=== PATIENT | male | born 1980 | race Caucasian/White ===

== ENCOUNTER 2017-10-24 10:07 | Emergency (ER) | payer OTHER ==
--- OUTSIDE RECORDS SUMMARY | 2017-10-24 10:09 | XMS REPORT | Clinical Summary ---
:1980 Author Organization [facility] Address [address] [place] [address] Care Team Providers Name Role Phone Asked, No Pcp Primary Care Provider Unavailable Allergies Active Allergy Reactions Severity Noted Date Comments Ibuprofen Other (See Comments) 12/09/2015 Can't breathe Asp-Diozrnnoupmpm-Wdas-Calcium 01/04/2016 Current Medications Prescription Sig. Disp. Refills Start Date End Date Status BOOSTRIX TDAP TO BE 0 12/05/2015 Active 2.5-8-5 ADMINISTERED BY Lf-mcg-Lf/0.5mL THE PHARMACIST suspension doxepin (SINEquan) Take 3 capsules 12/15/2015 Active 10 MG capsule by mouth nightly. ADVAIR DISKUS Inhale 1 puff 2 12/29/2015 Active 500-50 mcg/dose (two) times a DISKUS day. COMBIVENT RESPIMAT Inhale 1 puff 4 g 3 01/09/2017 Active 20-100 every 6 (six) mcg/actuation mist hours as needed inhaler (Wheezing). pantoprazole Take 40 mg by 03/28/2017 Active (PROTONIX) 40 MG mouth daily. EC tablet hydrOXYzine Take 25 mg by 03/12/2017 Active (ATARAX) 25 MG mouth every 4 tablet (four) hours as needed. fluticasone-salmet Inhale 232 mcg 2 1 each 3 08/16/2017 Active lon 232-14 (two) times a mcg/actuation day. aerosol powdr breath activated XOLAIR 150 mg INJECT 375MG 6 vial 0 10/15/2017 Active injection SUB-Q EVERY 2 WEEKS. COMBIVENT RESPIMAT Inhale 1 puff 11/22/2015 Discontinued 20-100 every 6 (six) 7 mcg/actuation mist hours as needed. inhaler predniSONE Take 4 tabs for 5 40 tablet 0 01/09/2017 (DELTASONE) 10 mg days, 3 tabs for 7 tablet 5 days, 2 tabs for 5 days, 1 tabs for 5days traMADol (ULTRAM) TK 1 T PO HS 0 03/27/2017 Discontinued 50 mg tablet 8 XOLAIR 150 mg 02/26/2017 Discontinued injection 8 ondansetron 03/28/2017 Discontinued (ZOFRAN) 4 MG 8 tablet XOLAIR 150 mg INJECT 375MG 6 vial 1 07/07/2017 Discontinued injection SUB-Q EVERY 2 8 WEEKS. Hospital, Clinic, or Ordered Dose Route Frequency Start Date End Date Status Other Facility Administered Medication omalizumab (XOLAIR) 375 mg subQ every 14 days 03/13/2017 Active injection 375 mgIndications: Chronic obstructive asthma with acute exacerbation methylPREDNISolone 80 mg IM once 01/09/2017 01/09/2017 Ended acetate (DEPO-MEDROL) injection 80 mgIndications: Asthma attack methylPREDNISolone 80 mg IM once 04/23/2017 04/23/2017 Ended acetate (DEPO-MEDROL) injection 80 mgIndications: Rash Active Problems Problem Noted Date Allergic rhinitis 12/09/2015 Asthma 12/09/2015 Encounters Date Type Specialty Care Team Description 10/15/2017 Refill Pulmonology Irina Donohue MD 10/10/2017 Clinical Support Pulmonology Felicia Hathaway MA Severe asthma with acute exacerbation, unspecified whether persistent (Primary Dx) 09/12/2017 Clinical Support Pulmonology Andra Lugo, Intermittent asthma MA without complication, unspecified asthma severity 08/17/2017 Telephone Pulmonology Marce Mason MA 08/16/2017 Clinical Support Pulmonology Marce Mason, Severe asthma with acute MA exacerbation, unspecified whether persistent 08/15/2017 Telephone Pulmonology Andra Lugo MA 07/26/2017 Telephone Pulmonology Marce Mason MA 07/09/2017 Clinical Support Pulmonology Andra Lugo, Severe asthma with acute MA exacerbation, unspecified whether persistent 07/09/2017 Documentation Pulmonology Marce Mason MA 07/05/2017 Refill Pulmonology Irina Donohue MD 06/25/2017 Clinical Support Pulmonology Andra Lugo, Severe asthma with acute MA exacerbation, unspecified whether persistent 06/25/2017 Telephone Pulmonology Irina Donohue MD 06/21/2017 Telephone PulmonIrina Vasquez MD 06/13/2017 Telephone Pulmonology Andra Lugo, WONG 05/30/2017 Clinical Support Pulmonology Irina Donohue MD Severe asthma with acute Marce Mason, exacerbation, unspecified MA whether persistent 05/16/2017 Clinical Support Pulmonology Andra Lugo, Severe asthma with acute MA exacerbation, unspecified whether persistent 05/14/2017 Telephone Pulmonology Marce Mason, WONG 05/07/2017 Telephone Pulmonology Felicia Hathaway MA 04/23/2017 Office Visit Pulmonology Irina Donohue MD Rash (Primary Dx); Snoring; TORSTEN (obstructive sleep apnea); Severe asthma with acute exacerbation, unspecified whether persistent 03/13/2017 Office Visit Pulmonology Irina Donohue MD Chronic obstructive asthma with acute exacerbation (Primary Dx); Severe asthma with acute exacerbation, unspecified whether persistent 03/08/2017 Telephone Pulmonology Andra Lugo, WONG 02/22/2017 Telephone Pulmonology Andra Lugo, WONG 01/23/2017 Office Visit Pulmonology Irina Donohue MD Seasonal allergic rhinitis due to pollen (Primary Dx); Severe persistent asthma with acute exacerbation 01/19/2017 Telephone Pulmonology Marce Mason, WONG 01/09/2017 Office Visit Pulmonology Irina Donohue MD Asthma attack ( Primary Dx); Seasonal allergic rhinitis due to pollen after 10/23/2016 Family History Medical History Relation Name Comments Heart attack Father Allergies Other Asthma Other Relation Name Status Comments Father Mother Other Social History Tobacco Use Types Packs/Day Years Used Date Never Smoker Smokeless Tobacco: Never Used Alcohol Use Drinks/Week oz/Week Comments Yes 1/2 a week Sex Assigned at Date Recorded Not on file Last Filed Vital Signs Vital Sign Reading Time Taken Blood Pressure 139/83 10/10/2017 4:24 PM CDT Pulse 72 10/10/2017 4:24 PM CDT Temperature 36.5 C (97.7 F) 10/10/2017 4:24 PM CDT Respiratory Rate - - Oxygen Saturation 98% 10/10/2017 4:24 PM CDT Inhaled Oxygen Concentration - - Weight 81.2 kg (179 lb) 10/10/2017 4:24 PM CDT Height 172.7 cm (5' 8") 04/23/2017 3:35 PM [employer] Body Mass Index 27.22 10/10/2017 4:24 PM CDT Plan of Treatment Health Maintenance Due Date Last Done Comments INFLUENZA VACCINE 01/02/2018 Results [place] grouping (01/19/2017 1:37 PM) Component Value Ref Range Rough marshelder 20.80 (H) kU/L Rough lara elder class 4 Sheep [place] IgE 5.94 (H) kU/L Sheep sorrel class 3 Nettle 11.20 (H) kU/L Nettle class 3 Specimen Performing Laboratory [facility] Narrative FASTING:NO Pullman grouping (01/19/2017 1:37 PM) Component Value Ref Range Common ragweed 4.35 (H) kU/L Common ragweed class 3 Rough pigweed 11.70 (H) kU/L Pigweed class 3 Specimen Performing Laboratory [facility] Narrative FASTING:NO Grass grouping (01/19/2017 1:37 PM) Component Value Ref Range Bermuda grass 12.80 (H) kU/L Bermuda grass class 3 Valentino grass 18.90 (H) kU/L Valentino grass class 4 Specimen Performing Laboratory [facility] Narrative FASTING:NO Tree grouping (01/19/2017 1:37 PM) Component Value Ref Range Pecan/[place] tree IgE 23.90 (H) kU/L Pecan/hickory tree class 4 [place] Tree 0.32 (H) kU/L [place] tree class 0/1 Specimen Performing Laboratory [facility] Narrative FASTING:NO Tree grouping (01/19/2017 1:37 PM) Component Value Ref Range Live/Jenny oak 1.97 (H) kU/L Live oak class 2 Elm IgE 5.90 (H) kU/L Elm class 3 Specimen Performing Laboratory [facility] Narrative FASTING:NO Tree grouping (01/19/2017 1:37 PM) Component Value Ref Range Amite IgE 3.04 (H) kU/L Maple/box elder class 2 Allergen silver birch 0.66 (H) kU/L Silver birch class 1 Mountain cedar tree 13.90 (H) kU/L Mountain cedar tree class 3 Mcgill tree 6.31 (H) kU/L Mcgill tree class 3 White shawn tree 8.82 (H) kU/L White shawn tree class 3 Specimen Performing [facility] Narrative FASTING:NO Cockroach (i6) IgE (01/19/2017 1:37 PM) Component Value Ref Range Cockroach 64.70 (H) kU/L Cockroach class 5 Specimen Performing [facility] Narrative FASTING:NO Dander Grouping (01/19/2017 1:37 PM) Component Value Ref Range Cat epithellium 99.20 (H) kU/L Cat epithellium class 5 Dog epithellium >100 (H) kU/L Dog epithelium class 6 Specimen Performing Laboratory [facility] Narrative FASTING:NO Mite and Mold Grouping (01/19/2017 1:37 PM) Component Value Ref Range D. pteronyssinus 96.30 (H) kU/L D. pteronyssinus class 5 D. farinae 92.70 (H) kU/L D. farinae class 5 Penicillium notatum 11.40 (H) kU/L Penicillium notatum class 3 Cladosporium herbarum 66.60 (H) kU/L Cladosporium herbarum class 5 Aspergillus fumigatus 26.80 (H) kU/L Aspergillus fumigatus class 4 Alternaria alternata 46.40 (H) kU/L Alternaria alternata class 4 Specimen Performing Laboratory [facility] Narrative FASTING:NO ALLERGEN MOUSE URINE PROTEINS (E72) IGE (01/19/2017 1:37 PM) Component Value Ref Range Mouse Urine Proteins 51.60 (H) kU/L Class 5 Specimen Performing Laboratory [facility] Narrative FASTING:NO [facility] Interpretation (01/19/2017 1:37 PM) Component Value Ref Range Interpretation Comment: SpecificLevel of Allergen IGE ClasskU/L Specific IGE Antibody ----- 0<0.10 Absent/ Undetectable 0/10.10-0.34 Very Low Level 10.35-0.69 Low Level 20.70-3.49 Moderate Level 33.50-17.4 High Level 417.5-49.9 Very High Level 550-100Very High Level 6>100Very High Level The clinical relevance of allergen results of 0.10-0.34 kU/L are undetermined and intended for specialist use. Allergens denoted with a "" include results using one or more analyte specific reagents. In those cases, the test was developed and its analytical performance characteristics have been determined by [employer]. It has not been cleared or approved by the U.S. Food and Drug Administration. This assay has been validated pursuant to the CLIA regulations and is used for clinical purposes. Specimen Performing Laboratory [facility] Narrative FASTING:NO Immunoglobulin E (01/19/2017 1:37 PM) Component Value Ref Range IgE 8,368 (H) <DW=618 kU/L Comment: Results verified by repeat analysis on dilution. Specimen Performing Laboratory Blood [facility] Narrative FASTING:NO after 10/23/2016 Insurance Payer Benefit Plan / Group Subscriber ID Type Phone Address AETNA AETNA HMO,POS,EPO, MC/EC xxxxxxxxxx HMO Home: [address] [facility] [phone] [place] [id number]
[2017-10-24] MEDS ORDERED: PANTOPRAZOLE 40 MG INJ ONE (10:38)
[2017-10-24] MEDS ORDERED: ONDANSETRON 4 MG/2 ML VIAL ONE (10:38)
[2017-10-24] MEDS ORDERED: NA CHLORIDE 0.9% 1,000 ML ONE (10:44)
[2017-10-24 10:53] LABS: Absolute Lymphocytes (CBC) 1.8 K/uL (0.7-4.9); Absolute Monocytes 0.5 K/uL (0.1-1.3); Absolute Neutrophil 3.9 K/uL (1.8-8.0); Basophils % 0.5 % (0-1.3); Eosinophils % 7.4 % (0-4.4); Hematocrit 44.2 % (39.6-49.0); Lymphocytes % 26.3 % (15.3-44.8); MCH 27.9 pg (27.0-35.0); MCV 81.4 fL (80-100); Monocytes % 7.7 % (3.3-12.3); RBC Red Blood Cell Count 5.43 M/uL (4.33-5.43)
[2017-10-24 11:13] LABS: Potassium 3.4 mEq/L (3.6-5.0)
[2017-10-24 11:20] LABS: Albumin 4.6 g/dL (3.2-5.5); Bilirubin Direct 0.1 mg/dL (0-0.2); Bilirubin Total 0.9 mg/dL (0.3-1.2); Protein, Total 7.9 g/dL (6.0-8.3)
--- NOTE | 2017-10-24 12:56 | RAD REPORT ---
EXAM DESCRIPTION: CT - Abdomen Pelvis W Contrast - 10/24/2017 12:48 pm CLINICAL HISTORY: Abdominal pain, prior cholecystectomy, prior hernia repair COMPARISON: CT March 2017 TECHNIQUE: Biphasic, helical CT imaging of the abdomen and pelvis was performed following 100 ml non -ionic IV contrast. Oral contrast was given. All CT scans are performed using dose optimization technique as appropriate and may include automated exposure control or mA/KV adjustment according to patient size. FINDINGS: No suspicious findings in the lung bases. The liver, spleen, and pancreas show no suspicious findings. Cholecystectomy clips are present with n o biliary tree dilatation. Symmetric renal function is seen with no hydronephrosis or suspicious renal mass. No pyelonephritis o r acute renal parenchymal process. No urinary bladder abnormality. No dilated bowel loops or bowel wall thickening. Appendix is normal. No free air, free fluid or infla mmatory stranding. No mass or bulky lymphadenopathy. A very small fat only umbilical hernia is prese nt. Postsurgical changes are present from inguinal hernia repair. No adrenal abnormality. No suspicious bony findings. IMPRESSION: No abdominal wall thickening, inflammatory stranding or other finding to explain epigast jon or upper abdominal pain symptoms. Patient is status post cholecystectomy. No biliary tree dilatation or pancreatic finding.
[2017-10-24] MEDS ORDERED: MORPHINE 4 MG/ML SYR ONE (13:36)
[2017-10-24 13:46] LABS: Urine Blood NEGATIVE (NEG); Urine Glucose NEGATIVE (NEG); Urine Protein NEGATIVE (NEG); Urine Specific Gravity 1.015 (1.005-1.030)
--- NOTE | 2017-10-24 13:47 | EKG ---
Test Date: 2017-10-24 Test Time: 10:41:53 Braille Duplicating Machine Operator: RONDA MEASUREMENT RESULTS: Intervals: Rate: 73 NH: 150 QRSD: 94 QT: 358 QTc: 394 [place]: P: 74 NH: 150 QRS: 87 T: 66 INTERPRETIVE STATEMENTS: Normal sinus rhythm Normal ECG Compared to ECG 04/24/2016 03:07:41 No significant changes Electronically Signed On 10-24-17 13:46:23 CDT by Manuel Olson
--- NOTE | 2017-10-24 14:09 | ER ---
Nurse's Notes [facility] Name: Christian Holder Jr Age: 37 yrs Sex: Male : 1980 Arrival Date: 10/24/2017 Time: 10:09 Bed 5 Private MD: Ivan Donnelly B Diagnosis: Epigastric pain Presentation: 10/24 10:12 Presenting complaint: Patient states: Epigastric pain for 1.5 weeks. Intolerant of aj food. Transition of care: patient was not received from another setting of care. Onset of symptoms was October 14, 2017. Care prior to arrival: None. 10:12 Method Of Arrival: Ambulatory aj 10:12 Acuity: HENRY 3 aj 10:47 Risk Assessment: Do you want to hurt yourself or someone else? Patient reports no sv desire to harm self or others. Initial Sepsis Screen: Does the patient meet any 2 criteria? No. Patient's initial sepsis screen is negative. Does the patient have a suspected source of infection? No. Patient's initial sepsis screen is negative. Triage Assessment: 10:13 General: Appears in no apparent distress. uncomfortable, Behavior is calm, cooperative, aj appropriate for age. Pain: Complains of pain in epigastric area. Neuro: Level of Consciousness is awake, alert, obeys commands, Oriented to person, place, time, situation, Appropriate for age. Respiratory: Airway is patent Respiratory effort is even, unlabored, Respiratory pattern is regular, symmetrical. GI: Abdomen is flat, non-distended, Reports upper abdominal pain, nausea, vomiting. Derm: Skin is intact, is healthy with good turgor, Skin is pink, warm \T\ dry. normal. Historical: - Allergies: 10:13 Advil; aj 10:13 Aspirin; aj - Home Meds: 10:13 Advair Diskus Inhl [Active]; aj - PMHx: 10:13 Asthma; aj - PSHx: 10:13 Hernia repair; sinus; Cholecystectomy; aj - Immunization history:: Adult Immunizations up to date. - Social history:: Smoking status: Patient/guardian denies using tobacco. - Ebola Screening: : No symptoms or risks identified at this time. Screenin:47 Abuse screen: Denies threats or abuse. Denies injuries from another. Nutritional sv screening: No deficits noted. Tuberculosis screening: No symptoms or risk factors identified. Fall Risk None identified. Assessment: 10:46 General: Appears in no apparent distress. comfortable, Behavior is calm, cooperative, sv appropriate for age. Pain: Complains of pain in epigastric area Pain currently is 8 out of 10 on a pain scale. Quality of pain is described as aching, Pain began 1.5 weeks ago Is intermittent. Neuro: Level of Consciousness is awake, alert, obeys commands, Oriented to person, place, time, situation, Moves all extremities. Full function Gait is steady. Respiratory: Respiratory effort is even, unlabored, Respiratory pattern is regular, symmetrical. GI: Abdomen is flat, non-distended, Abd is soft and non tender X 4 quads. Reports epigastric pain. Derm: Skin is normal. 12:10 Reassessment: Patient appears in no apparent distress at this time. Patient and/or sv family updated on plan of care and expected duration. Pain level reassessed. Patient is alert, oriented x 3, equal unlabored respirations, skin warm/dry/pink. 13:36 Reassessment: Patient and/or family updated on plan of care and expected duration. Pain aa5 level reassessed. Patient is alert, oriented x 3, equal unlabored respirations, skin warm/dry/pink. Vital Signs: 10:13 BP 146 / 95; Pulse 71; Resp 16; Temp 97.4; Pulse Ox 99% on R/A; Weight 79.38 kg; Height aj 5 ft. 8 in. (172.72 cm); Pain 8/10; 11:35 BP 147 / 89; Pulse 75; Resp 17; Pulse Ox 100% on R/A; jb1 12:30 BP 156 / 92; Pulse 88; Resp 18; Pulse Ox 98% on R/A; sv 13:37 BP 156 / 96; Pulse 85; Resp 17; Pulse Ox 99% on R/A; jb1 10:13 Body Mass Index 26.61 (79.38 kg, 172.72 cm) aj ED Course: 10:09 Patient arrived in ED. sb2 10:09 Ivan Donnelly MD is Private Physician. sb2 10:12 Triage completed. aj 10:13 Arm band placed on left wrist. Patient placed in an exam room. aj 10:14 Norris Betts PA is PHCP. cp 10:14 Noel Sánchez MD is Attending Physician. cp 10:22 Keesha Hernandez, RN is Primary Nurse. sv 10:36 Inserted saline lock: 22 gauge in left antecubital area, using aseptic technique. Blood jb1 collected. 10:36 Missed attempt(s): 22 gauge in right antecubital area. jb1 10:36 Initial lab(s) drawn, by me, sent to lab. jb1 10:47 Patient has correct armband on for positive identification. Placed in gown. Bed in low sv position. Call light in reach. Side rails up X2. Door closed. Warm blanket given. Head of bed elevated. 11:42 Creatinine (Radiology Only) Sent. sv 11:53 Urine Microscopic Only Sent. sv 12:37 IV discontinued, intact, bleeding controlled, Pressure dressing applied. jb1 12:38 Inserted saline lock: 22 gauge in right antecubital area, using aseptic technique. jb1 12:50 Abdomen In Process Unspecified. EDMS 14:08 Debbie Colvin MD is Referral Physician. cp 14:28 No provider procedures requiring assistance completed. sv Administered Medications: 10:40 Drug: ProTONIX 40 mg Route: IVP; Site: left antecubital; sv 10:46 Follow up: Response: No adverse reaction sv 10:42 Drug: Zofran 4 mg Route: IVP; Site: left antecubital; sv 10:45 Follow up: Response: No adverse reaction sv 10:45 Drug: NS 0.9% 1000 ml Route: IV; Rate: 1000 ml; Site: left antecubital; sv 13:36 Drug: morphine 4 mg Route: IVP; Site: right antecubital; aa5 Outcome: 14:09 Discharge ordered by MD. cp 14:28 Patient left the ED. sg 14:28 Discharged to home ambulatory. sv 14:28 Condition: stable 14:28 Discharge instructions given to patient, Instructed on discharge instructions, follow up and referral plans. medication usage, Demonstrated understanding of instructions, follow-up care, medications, Prescriptions given X 3. Signatures: Dispatcher [employer] EDMS Arun Quijano jb1 Keesha Hernandez RN RN sv Gay, Steven, RN RN sg Myers, Amanda, RN RN aj Calderon, Audri, RN RN aa5 Norris Betts PA PA cp Billeau, Sheri sb2 Corrections: (The following items were deleted from the chart) 14: 11:42 AMYLASE, SERUM+C.LAB.BRZ drawn and sent. EDMS 14:12 11:42 BASIC METABOLIC PANEL+C.LAB.BRZ drawn and sent. EDMS 14: 11:42 CBC+H.LAB.BRZ drawn and sent. EDMS 14: 11:42 Creatinine for Radiology+C.LAB.BRZ drawn and sent. EDMS 14:12 11:42 HEPATIC FUNCTION+C.LAB.BRZ drawn and sent. EDMS 14: 11:42 LIPASE+C.LAB.BRZ drawn and sent. EDMS 14:13 11:42 TROPONIN I+C.LAB.BRZ drawn and sent. EDMS
--- NOTE | 2017-10-24 14:10 | EDPHYS ---
Physician Documentation [facility] Name: Christian Holder Jr Age: 37 yrs Sex: Male : 1980 Arrival Date: 10/24/2017 Time: 10:09 Bed 5 Private MD: Ivan Donnelly B ED Physician Noel Sánchez HPI: 10/24 10:40 This 37 yrs old Male presents to ER via Ambulatory with complaints of cp Abdominal Pain. 10:40 The patient presents with abdominal pain in the epigastric area. Onset: The cp symptoms/episode began/occurred 1.5 week(s) ago. The symptoms do not radiate. 10:40 Associated signs and symptoms: Pertinent positives: nausea, Pertinent negatives: chest cp pain, constipation, diarrhea, fever, shortness of breath, vomiting. 10:40 The symptoms are described as waxing/waning. cp Historical: - Allergies: 10:13 Advil; aj 10:13 Aspirin; aj - Home Meds: 10:13 Advair Diskus Inhl [Active]; aj - PMHx: 10:13 Asthma; aj - PSHx: 10:13 Hernia repair; sinus; Cholecystectomy; aj - Immunization history:: Adult Immunizations up to date. - Social history:: Smoking status: Patient/guardian denies using tobacco. - Ebola Screening: : No symptoms or risks identified at this time. ROS: 10:40 Eyes: Negative for injury, pain, redness, and discharge. cp 10:40 Constitutional: Negative for body aches, chills, fever, poor PO intake. 10:40 ENT: Negative for drainage from ear(s), ear pain, sore throat, difficulty swallowing, difficulty handling secretions. 10:40 Cardiovascular: Negative for chest pain, edema, palpitations. 10:40 Respiratory: Negative for cough, shortness of breath, wheezing. 10:40 Abdomen/GI: Positive for abdominal pain, Negative for vomiting, diarrhea, constipation, anorexia, dysphagia, black/tarry stool, rectal bleeding. 10:40 Back: Negative for pain at rest, pain with movement, radiated pain. 10:40 : Negative for urinary symptoms. 10:40 Skin: Negative for cellulitis, rash. 10:40 Neuro: Negative for altered mental status, headache, syncope, near syncope, weakness. 10:40 All other systems are negative. Exam: 10:45 ECG was reviewed by the Attending Physician. cp 10:45 Constitutional: The patient appears in no acute distress, alert, awake, cp non-diaphoretic, non-toxic, well developed, well nourished. 10:45 Head/Face: Normocephalic, atraumatic. cp 10:45 Eyes: Pupils equal round and reactive to light, extra-ocular motions intact. Lids and lashes normal. Conjunctiva and sclera are non-icteric and not injected. Cornea within normal limits. Periorbital areas with no swelling, redness, or edema. ENT: Nares patent. No nasal discharge, no septal abnormalities noted. Tympanic membranes are normal and external auditory canals are clear. Oropharynx with no redness, swelling, or masses, exudates, or evidence of obstruction, uvula midline. Mucous membranes moist. Neck: Trachea midline, no thyromegaly or masses palpated, and no cervical lymphadenopathy. Supple, full range of motion without nuchal rigidity, or vertebral point tenderness. No Meningismus. Chest/axilla: Normal chest wall appearance and motion. Nontender with no deformity. No lesions are appreciated. 10:45 Cardiovascular: Rate: normal, Rhythm: regular, Heart sounds: murmur, not appreciated, rub, not appreciated, gallop, not appreciated, Edema: is not appreciated, JVD: is not appreciated. 10:45 Respiratory: the patient does not display signs of respiratory distress, Respirations: normal, no use of accessory muscles, no retractions, no splinting, no tachypnea, labored breathing, is not present, Breath sounds: are clear throughout, no decreased breath sounds, no stridor, no wheezing. 10:45 Abdomen/GI: Inspection: abdomen appears normal, Bowel sounds: active, all quadrants, Palpation: soft, in all quadrants, mild abdominal tenderness, in the epigastric area, involuntary guarding, is not appreciated. 10:45 Back: pain, is absent, ROM is normal. 10:45 Skin: cellulitis, is not appreciated, no rash present. 10:45 Neuro: Orientation: to person, place \T\ time. Mentation: lucid, able to follow commands, Motor: moves all fours, strength is normal, Sensation: no obvious gross deficits, Gait: is steady, at a normal pace, without difficulty. Vital Signs: 10:13 BP 146 / 95; Pulse 71; Resp 16; Temp 97.4; Pulse Ox 99% on R/A; Weight 79.38 kg; Height aj 5 ft. 8 in. (172.72 cm); Pain 8/10; 11:35 BP 147 / 89; Pulse 75; Resp 17; Pulse Ox 100% on R/A; jb1 12:30 BP 156 / 92; Pulse 88; Resp 18; Pulse Ox 98% on R/A; sv 13:37 BP 156 / 96; Pulse 85; Resp 17; Pulse Ox 99% on R/A; jb1 10:13 Body Mass Index 26.61 (79.38 kg, 172.72 cm) aj MDM: 10:15 Patient medically screened. cp 11:00 Differential diagnosis: gastritis, gastroesophageal reflux disease, GI Bleed, cp pancreatitis, Peptic Ulcer Disease, Perf. Duodenal Ulcer, Perf. Gastric Ulcer, Ureterolithiasis, urinary tract infection, choledocholithiasis. 14:08 ED course: VSS. Patient reports pain is better. Will discharge to home for continued cp monitoring. 14:08 Data reviewed: vital signs, nurses notes, lab test result(s), radiologic studies, CT cp scan. 10/24 10:50 Order name: Basic Metabolic Panel; Complete Time: 11:28 EDMS 10/24 11:28 Interpretation: Normal except: K 3.4; GFR 85. 10/24 10:50 Order name: Liver (Hepatic) Function; Complete Time: 11:28 EDMS 10/24 11:29 Interpretation: Reviewed. 10/24 10:50 Order name: Amylase Level; Complete Time: 11:28 EDCT 10/24 11:28 Interpretation: Abnormal: LUIS ALFREDO 105. 10/24 10:50 Order name: Lipase; Complete Time: 11:28 EDMS 10/24 11:29 Interpretation: Abnormal: LIP 136. 10/24 10:50 Order name: Creatinine (Radiology Only); Complete Time: 12:04 EDCT 10/24 12:04 Interpretation: Normal except. 10/24 10:50 Order name: Troponin I; Complete Time: 11:25 EDMS 10/24 11:25 Interpretation: Abnormal: TROP < 0.03. 10/24 10:21 Order name: IV Saline Lock; Complete Time: 10:37 10/24 10:21 Order name: Labs collected and sent; Complete Time: 10:37 cp 10/24 10:21 Order name: Urine Dipstick-Ancillary (obtain specimen); Complete Time: 13:45 cp 10/24 10:37 Order name: EKG; Complete Time: 10:37 cp 10/24 10:37 Order name: EKG - Nurse/Tech; Complete Time: 10:42 cp 10/24 10:50 Order name: CBC with Automated Diff; Complete Time: 11:08 EDMS 10/24 11:08 Interpretation: Normal except: EOSINOPHIL % 7.4. cp 10/24 12:18 Order name: Urine Dipstick--Ancillary (enter results); Complete Time: 14:07 em1 10/24 14:07 Interpretation: Normal except: UPH 8.0. cp 10/24 12:29 Order name: Abdomen ; Complete Time: 13:02 EDMS EC:45 Rate is 73 beats/min. Rhythm is regular. OK interval is normal. QRS interval is normal. cp QT interval is normal. T waves are Inverted in lead aVL. No ST changes noted. Interpreted by me. Reviewed by me. Administered Medications: 10:40 Drug: ProTONIX 40 mg Route: IVP; Site: left antecubital; sv 10:46 Follow up: Response: No adverse reaction sv 10:42 Drug: Zofran 4 mg Route: IVP; Site: left antecubital; sv 10:45 Follow up: Response: No adverse reaction sv 10:45 Drug: NS 0.9% 1000 ml Route: IV; Rate: 1000 ml; Site: left antecubital; sv 13:36 Drug: morphine 4 mg Route: IVP; Site: right antecubital; aa5 Disposition: 14:40 Co-signature as Attending Physician, Noel Sánchez MD. rn Disposition: 10/24/17 14:09 Discharged to Home. Impression: Epigastric pain. - Condition is Stable. - Discharge Instructions: Abdominal Pain, Adult. - Prescriptions for Protonix 40 mg Oral Tablet - take 1 tablet by ORAL route once daily; 30 tablet. Tylenol- Codeine #3 300-30 mg Oral Tablet - take 2 tablets by ORAL route every 6 hours As needed; 20 tablet. Zofran 4 mg Oral Tablet - take 1 tablet by ORAL route every 12 hours As needed; 20 tablet. - Work release form, Medication Reconciliation Form, Thank You Letter, Antibiotic Education, Prescription Opioid Use form. - Follow up: Debbie Colvin MD; When: 2 - 3 days; Reason: Recheck today's complaints. - Problem is new. - Symptoms have improved. Signatures: Dispatcher [employer] EDMS Keesha Hernandez, RN Hever Valentin RN Chandni Medina RN Noel Fisher MD MD rn Calderon, Audri, RN RN aa5 Norris Betts PA PA cp Corrections: (The following items were deleted from the chart) 12:52 11:26 Abdomen Pelvis W Con+CT.RAD.BRZ ordered. EDMS EDMS 14:12 10:21 AMYLASE, SERUM+C.LAB.BRZ ordered. EDMS EDMS 14:12 10:21 BASIC METABOLIC PANEL+C.LAB.BRZ ordered. EDMS EDMS 14:12 10:21 CBC+H.LAB.BRZ ordered. EDMS EDMS 14:12 10:21 Creatinine for Radiology+C.LAB.BRZ ordered. EDMS EDMS 14:12 10:21 HEPATIC FUNCTION+C.LAB.BRZ ordered. EDMS EDMS 14:12 10:21 LIPASE+C.LAB.BRZ ordered. EDMS EDMS 14:13 10:37 TROPONIN I+C.LAB.BRZ ordered. EDMS EDMS 14:28 14:09 10/24/2017 14:09 Discharged to Home. Impression: Epigastric pain. Condition is sg Stable. Forms are Medication Reconciliation Form, Thank You Letter, Antibiotic Education, Prescription Opioid Use. Follow up: Debbie Colvin; When: 2 - 3 days; Reason: Recheck today's complaints. Problem is new. Symptoms have improved. cp
[2017-10-24 14:33] VITALS: TEMP 97.4
[2017-10-24 14:37] VITALS: BP 156/96; O2SAT 99
== END 2017-10-24 14:28 | disposition home or self-care (01) ==
LOC: ER 10:07
DX: R10.13 Epigastric pain (principal); J45.909 Unspecified asthma, uncomplicated; Z88.6 Allergy status to analgesic agent
CPT/HCPCS: 36415; 74177; 80048; 80076; 81003; 82150; 83690; 84484; 85025; 93005; 99284; C9113; J2405; J7030; Q9967

== ENCOUNTER 2019-03-08 13:18 | Emergency (ER) | payer BC ==
[2019-03-08] MEDS ORDERED: NA CHLORIDE 0.9% 1,000 ML ONE ×2 (13:41→14:36)
[2019-03-08] MEDS ORDERED: MORPHINE 4 MG/ML SYR ONE ×2 (13:49→15:57)
[2019-03-08] MEDS ORDERED: ONDANSETRON 4 MG/2 ML VIAL ONE (13:49)
[2019-03-08 13:56] LABS: Basophils % 0.3 % (0-1.3); Hematocrit 46.4 % (39.6-49.0); Lymphocytes % 24.3 % (15.3-44.8); MPV 8.8 fL (7.6-11.3); RBC Red Blood Cell Count 5.68 M/uL (4.33-5.43)
[2019-03-08 14:05] LABS: Albumin 4.5 g/dL (3.4-5.0); Bilirubin Direct 0.2 mg/dL (0-0.2); Bilirubin Total 0.7 mg/dL (0.2-1.0); Potassium 3.6 mmol/L (3.5-5.1); Protein, Total 8.5 g/dL (6.4-8.2)
--- NOTE | 2019-03-08 15:05 | RAD REPORT ---
EXAM DESCRIPTION: CT - Abdomen Pelvis W Contrast - 03/08/2019 2:33 pm CLINICAL HISTORY: Abdominal pain COMPARISON: 2017 TECHNIQUE: Computed axial tomography of the abdomen pelvis was obtained. 100 cc Isovue-300 was admin istered intravenously. Oral contrast was not requested which limits evaluation of bowel. All CT scans are performed using dose optimization technique as appropriate and may include automated exposure control or mA/KV adjustment according to patient size. FINDINGS: Mild fatty liver. Cholecystectomy The spleen, pancreas, and adrenal appear unremarkable. Tiny nonobstructing bilateral renal calculi There is no evidence of diverticulitis. Normal appendix Fluid within nondilated small bowel The bladder is mildly distended IMPRESSION: Fluid within nondilated small bowel may indicate enteritis Mild bladder distention
[2019-03-08 15:38] LABS: Calcium Oxalate Crystals- Ur PRESENT (NONE SEEN); Urine Bacteria <20 /HPF (NONE SEEN); Urine Culture Reflex Order NOT NEEDED; Urine RBC <5 /HPF (NONE SEEN)
--- NOTE | 2019-03-08 16:27 | ER ---
Nurse's Notes [facility] Name: Christian Holder Jr Age: 38 yrs Sex: Male : 1980 Arrival Date: 03/08/2019 Time: 13:21 Bed 26 Private MD: Ivan Donnelly B Diagnosis: Enteritis Presentation: 03/08 13:22 Presenting complaint: Patient states: Abdominal pain that radiates to the back since aj1 yesterday. Patient states that he has a history of pancreatitis and it feels the same as his previous episode. Patient also reports nausea and vomiting. Denies fever, diarrhea. Transition of care: patient was not received from another setting of care. Onset of symptoms was March 2019. Risk Assessment: Do you want to hurt yourself or someone else? Patient reports no desire to harm self or others. Initial Sepsis Screen: Does the patient meet any 2 criteria? No. Patient's initial sepsis screen is negative. Does the patient have a suspected source of infection? Yes: Acute abdominal pain. Care prior to arrival: None. 13:22 Method Of Arrival: Ambulatory aj 13:22 Acuity: HENRY 3 aj1 Triage Assessment: 13:25 General: Appears in no apparent distress. comfortable, Behavior is calm, cooperative, aj1 appropriate for age. Pain: Complains of pain in abdomen Pain currently is 8 out of 10 on a pain scale. Neuro: Level of Consciousness is awake, alert, obeys commands. Cardiovascular: Patient's skin is warm and dry. Respiratory: Airway is patent Respiratory effort is even, unlabored, Respiratory pattern is regular, symmetrical. Historical: - Allergies: 13:25 PENICILLINS; aj1 13:25 Advil; aj1 13:25 Aspirin; aj1 - Home Meds: 13:25 Advair Diskus Inhl [Active]; Doxepin Oral [Active]; aj1 - PMHx: 13:25 Asthma; aj1 - Immunization history:: Flu vaccine is not up to date. - Social history:: Smoking status: Patient/guardian denies using tobacco. - Ebola Screening: : Patient denies travel to an Ebola-affected area in the 21 days before illness onset. Screenin:50 Abuse screen: Denies threats or abuse. Denies injuries from another. Nutritional mg2 screening: No deficits noted. Tuberculosis screening: No symptoms or risk factors identified. Fall Risk IV access (20 points). Assessment: 14:49 General: Appears in no apparent distress. comfortable, Behavior is calm, cooperative. mg2 Pain: Complains of pain in epigastric area Pain radiates to back Pain currently is 3 out of 10 on a pain scale. Quality of pain is described as aching, Pain began gradually, 1 day ago. Is intermittent. Neuro: Level of Consciousness is awake, alert, obeys commands, Oriented to person, place, time, situation. Cardiovascular: Capillary refill < 3 seconds Patient's skin is warm and dry. Respiratory: Airway is patent Respiratory effort is even, unlabored, Respiratory pattern is regular, symmetrical. GI: Reports upper abdominal pain, vomiting. : No signs and/or symptoms were reported regarding the genitourinary system. EENT: No signs and/or symptoms were reported regarding the EENT system. Derm: Skin is intact, is healthy with good turgor, Skin is pink, warm \T\ dry. normal. Musculoskeletal: Circulation, motion, and sensation intact. Capillary refill < 3 seconds. 16:47 Reassessment: Patient appears in no apparent distress at this time. Patient states mg2 feeling better. Patient states symptoms have improved. Vital Signs: 13:25 BP 160 / 101; Pulse 82; Resp 18; Temp 98.0; Pulse Ox 98% on R/A; Weight 86.18 kg (R); aj1 Height 5 ft. 8 in. (172.72 cm) (R); 14:48 BP 171 / 93; Pulse 90; Resp 18; Pulse Ox 100% on R/A; mg2 15:34 BP 143 / 90; Pulse 89; Resp 17; Pulse Ox 100% on R/A; mg2 16:45 BP 140 / 78; Pulse 80; Resp 18; Temp 98.5; Pulse Ox 100% on R/A; Pain 1/10; mg2 13:25 Body Mass Index 28.89 (86.18 kg, 172.72 cm) aj1 ED Course: 13:21 Patient arrived in ED. as 13:21 Ivan Donnelly MD is Private Physician. as 13:24 Triage completed. aj1 13:25 Arm band placed on Patient placed in an exam room. aj1 13:27 Ming Pacheco PA is PHCP. [facility] 13:27 Noel Sánchez MD is Attending Physician. jmm 13:41 Initial lab(s) drawn, by me, sent to lab. Inserted saline lock: 20 gauge in left lt1 antecubital area, using aseptic technique. 13:47 Donavan Degroot, GIOVANA is Primary Nurse. mg2 14:32 CT completed. Patient tolerated procedure well. Patient moved back from CT. bq 14:34 CT Abd/Pelvis - IV Contrast Only In Process Unspecified. EDMS 14:50 Patient has correct armband on for positive identification. Pulse ox on. NIBP on. mg2 15:34 No provider procedures requiring assistance completed. mg2 16:26 Debbie Colvin MD is Referral Physician. jmm 16:47 IV discontinued, intact, bleeding controlled, No redness/swelling at site. Pressure mg2 dressing applied. Administered Medications: 13:47 Drug: NS 0.9% 1000 ml Route: IV; Rate: 1 bolus; Site: left antecubital; mg2 14:32 Follow up: Response: No adverse reaction; IV Status: Completed infusion; IV Intake: mg2 1000ml 13:56 Drug: morphine 4 mg Route: IVP; Site: left antecubital; mg2 14:32 Follow up: Response: No adverse reaction; Marked relief of symptoms; RASS: Alert and mg2 Calm (0) 13:56 Drug: Zofran 4 mg Route: IVP; Site: left antecubital; mg2 14:32 Follow up: Response: No adverse reaction mg2 14:50 Drug: NS 0.9% 1000 ml Route: IV; Rate: 1 bolus; Site: left antecubital; mg2 16:47 Follow up: Response: No adverse reaction; IV Status: Completed infusion; IV Intake: mg2 1000ml 16:04 Drug: morphine 4 mg Route: IVP; Site: left hand; mg2 16:46 Follow up: Response: No adverse reaction; Marked relief of symptoms mg2 Intake: 14:32 IV: 1000ml; Total: 1000ml. mg2 16:47 IV: 1000ml; Total: 2000ml. mg2 Outcome: 16:27 Discharge ordered by . jmm 16:48 Discharged to home ambulatory. mg2 16:48 Condition: stable 16:48 Discharge instructions given to patient, Instructed on discharge instructions, follow up and referral plans. medication usage, Demonstrated understanding of instructions, follow-up care, medications, Prescriptions given X 2. 16:49 Patient left the ED. mg2 Signatures: Dispatcher [employer] Hawa Leung, GIOVANA RN aj1 Ming Pacheco PA PA jmm Quilty, Betty bq Martinez, Amelia as Gardose, Michele, RN RN mg2 Lashanda, Val lt1
--- NOTE | 2019-03-08 16:28 | EDPHYS ---
Physician Documentation [facility] Name: Christian Holder Jr Age: 38 yrs Sex: Male : 1980 Arrival Date: 03/08/2019 Time: 13:21 Bed 26 Private MD: Ivan Donnelly B ED Physician Noel Sánchez HPI: 03/08 13:49 This 38 yrs old Male presents to ER via Ambulatory with complaints of jmm Pancreatitis. 13:49 The patient presents with abdominal pain in the epigastric area. Onset: The jmm symptoms/episode began/occurred gradually, 1 day(s) ago. The symptoms radiate to Associated signs and symptoms: Pertinent negatives: fever, vomiting, vomiting blood. The symptoms are described as achy. The patient has experienced similar episodes in the past. This is a 38 year old male with a history of pancreatitis that presents to the ED with complaints of epigastric abdominal pain beginning 1 day ago. Denies recent EtOH intake. Patient states having similar episodes roughly once a year since having his gallbladder removed 2 years ago. . Historical: - Allergies: 13:25 PENICILLINS; aj1 13:25 Advil; aj1 13:25 Aspirin; aj1 - Home Meds: 13:25 Advair Diskus Inhl [Active]; Doxepin Oral [Active]; aj1 - PMHx: 13:25 Asthma; aj1 - Immunization history:: Flu vaccine is not up to date. - Social history:: Smoking status: Patient/guardian denies using tobacco. - Ebola Screening: : Patient denies travel to an Ebola-affected area in the 21 days before illness onset. ROS: 13:49 Constitutional: Negative for fever, chills, and weight loss, Cardiovascular: Negative jmm for chest pain, palpitations, and edema, Respiratory: Negative for shortness of breath, cough, wheezing, and pleuritic chest pain. 13:49 Abdomen/GI: Positive for abdominal pain, nausea. 13:49 Back: Positive for radiated pain. 13:49 All other systems are negative. Exam: 13:49 Head/Face: atraumatic. Eyes: EOMI, no conjunctival erythema appreciated ENT: Moist jmm Mucus Membranes Neck: Trachea midline, Supple Chest/axilla: Normal chest wall appearance and motion. Cardiovascular: Regular rate and rhythm. No edema appreciated Respiratory: Normal respirations, no respiratory distress appreciated 13:49 Constitutional: The patient appears in no acute distress, alert, awake. 13:49 Abdomen/GI: Inspection: abdomen appears normal, Bowel sounds: normal, Palpation: soft, mild abdominal tenderness, in the epigastric area. 13:49 Back: ROM is normal. 13:49 Musculoskeletal/extremity: ROM: intact in all extremities. 13:49 Skin: Appearance: Color: normal in color. 13:49 Neuro: Orientation: is normal, Mentation: is normal, Memory: is normal. 13:49 Psych: Behavior/mood is pleasant, cooperative. Vital Signs: 13:25 BP 160 / 101; Pulse 82; Resp 18; Temp 98.0; Pulse Ox 98% on R/A; Weight 86.18 kg (R); aj1 Height 5 ft. 8 in. (172.72 cm) (R); 14:48 BP 171 / 93; Pulse 90; Resp 18; Pulse Ox 100% on R/A; mg2 15:34 BP 143 / 90; Pulse 89; Resp 17; Pulse Ox 100% on R/A; mg2 16:45 BP 140 / 78; Pulse 80; Resp 18; Temp 98.5; Pulse Ox 100% on R/A; Pain 1/10; mg2 13:25 Body Mass Index 28.89 (86.18 kg, 172.72 cm) aj1 MDM: 13:42 Patient medically screened. [facility] 16:25 Data reviewed: vital signs, nurses notes. Counseling: I had a detailed discussion with [facility] the patient and/or guardian regarding: the historical points, exam findings, and any diagnostic results supporting the discharge/admit diagnosis, lab results, radiology results, the need for outpatient follow up, to return to the emergency department if symptoms worsen or persist or if there are any questions or concerns that arise at home. ED course: Pain relieved in the ED. Patient advised to use a clear liquid diet and follow up with GI. Patient was otherwise given strict return precautions. Patient understood and agrees with the plan of care. . 03/08 13:28 Order name: Basic Metabolic Panel; Complete Time: 14:06 [facility] 03/08 13:28 Order name: CBC with Diff; Complete Time: 14:06 [facility] 03/08 13:28 Order name: Creatinine for Radiology; Complete Time: 14: [facility] 03/08 13:28 Order name: Hepatic Function; Complete Time: 14:06 [facility] 03/08 13:28 Order name: Lipase; Complete Time: 14:06 [facility] 03/08 14:52 Order name: Urine Dipstick--Ancillary (enter results) 03/08 13:28 Order name: IV Saline Lock; Complete Time: 13:41 [facility] 03/08 14:10 Order name: CT Abd/Pelvis - IV Contrast Only; Complete Time: 15:08 [facility] 03/08 15:12 Order name: Urine Microscopic Only; Complete Time: 15:55 [facility] 03/08 13:28 Order name: Labs collected and sent; Complete Time: 13:41 jm Administered Medications: 13:47 Drug: NS 0.9% 1000 ml Route: IV; Rate: 1 bolus; Site: left antecubital; mg2 14:32 Follow up: Response: No adverse reaction; IV Status: Completed infusion; IV Intake: mg2 1000ml 13:56 Drug: morphine 4 mg Route: IVP; Site: left antecubital; mg2 14:32 Follow up: Response: No adverse reaction; Marked relief of symptoms; RASS: Alert and mg2 Calm (0) 13:56 Drug: Zofran 4 mg Route: IVP; Site: left antecubital; mg2 14:32 Follow up: Response: No adverse reaction mg2 14:50 Drug: NS 0.9% 1000 ml Route: IV; Rate: 1 bolus; Site: left antecubital; mg2 16:47 Follow up: Response: No adverse reaction; IV Status: Completed infusion; IV Intake: mg2 1000ml 16:04 Drug: morphine 4 mg Route: IVP; Site: left hand; mg2 16:46 Follow up: Response: No adverse reaction; Marked relief of symptoms mg2 Disposition: 16:55 Co-signature as Attending Physician, Noel Sánchez MD. rn Disposition: 03/08/19 16:27 Discharged to Home. Impression: Enteritis. - Condition is Stable. - Discharge Instructions: Acute Pancreatitis, Viral Gastroenteritis, Adult. - Prescriptions for Zofran ODT 4 mg Oral tablet,disintegrating - place 1 tablet by TRANSLINGUAL route every 4-6 hours; 20 tablet. Tylenol- Codeine #3 300-30 mg Oral Tablet - take 1 tablet by ORAL route every 6 hours As needed; 20 tablet. - Medication Reconciliation Form, Thank You Letter, Antibiotic Education, Prescription Opioid Use form. - Follow up: Debbie Colvin MD; When: 2 - 3 days; Reason: Recheck today's complaints, Continuance of care, Re-evaluation by your physician. Signatures: Dispatcher [employer] EDHawa Powell RN RN aj1 Ming Pacheco PA PA jmm Nieto, Roman, MD MD rn Donavan Degroot RN RN mg2 Corrections: (The following items were deleted from the chart) 16:49 16:27 03/08/2019 16:27 Discharged to Home. Impression: Enteritis. Condition is Stable. mg2 Forms are Medication Reconciliation Form, Thank You Letter, Antibiotic Education, Prescription Opioid Use. Follow up: Debbie Colvin; When: 2 - 3 days; Reason: Recheck today's complaints, Continuance of care, Re-evaluation by your physician. mu
[2019-03-08 16:56] VITALS: O2SAT 100
[2019-03-08 16:59] VITALS: BP 140/78; TEMP 98.5
[2019-03-08 17:18] LABS: Urine Blood NEGATIVE (NEG); Urine Glucose NEGATIVE (NEG); Urine Protein NEGATIVE (NEG); Urine pH 6.5 (5.0-7.0)
== END 2019-03-08 16:49 | disposition home or self-care (01) ==
LOC: ER 13:18
DX: K52.9 Noninfective gastroenteritis and colitis, unspecified (principal); J45.909 Unspecified asthma, uncomplicated; Z88.0 Allergy status to penicillin
CPT/HCPCS: 96361; 85025; 80048; 36415; 80076; 83690; 74177; 96375; 96374; 99284; Q9967; J7030 ×2; J2405; 81003; 81015

== ENCOUNTER 2019-07-15 06:01 | Emergency (ER) | payer BC ==
[2019-07-15 07:09] LABS: Basophils % 0.5 % (0-1.3); Hematocrit 41.9 % (39.6-49.0); Lymphocytes % 30.6 % (15.3-44.8); MPV 8.8 fL (7.6-11.3); RBC Red Blood Cell Count 5.21 M/uL (4.33-5.43)
[2019-07-15] MEDS ORDERED: ONDANSETRON 4 MG/2 ML VIAL ONE (07:16)
[2019-07-15] MEDS ORDERED: NA CHLORIDE 0.9% 1,000 ML ONE (07:16)
[2019-07-15 07:24] LABS: Albumin 3.7 g/dL (3.4-5.0); Bilirubin Direct 0.1 mg/dL (0-0.2); Bilirubin Total 0.5 mg/dL (0.2-1.0); Potassium 4.2 mmol/L (3.5-5.1); Protein, Total 7.4 g/dL (6.4-8.2)
[2019-07-15] MEDS ORDERED: MORPHINE 4 MG/ML SYR ONE (07:39)
--- NOTE | 2019-07-15 08:04 | EDPHYS ---
Physician Documentation [facility] Name: Christian Holder Jr Age: 38 yrs Sex: Male : 1980 Arrival Date: 07/15/2019 Time: 06:03 Bed 14 Private MD: ED Physician Federico Schwartz HPI: 07/15 06:29 This 38 yrs old Male presents to ER via Ambulatory with complaints of jr8 Abdominal Pain. 06:29 The patient presents with abdominal pain in the epigastric area. Onset: The jr8 symptoms/episode began/occurred acutely, last night. The symptoms radiate to back. Associated signs and symptoms: Pertinent positives: nausea and vomiting. The symptoms are described as dull. Modifying factors: The symptoms are alleviated by nothing, the symptoms are aggravated by vomiting. Severity of pain: At its worst the pain was mild in the emergency department the pain is unchanged. The patient has experienced similar episodes in the past, a few times. The patient has not recently seen a physician. 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 Has seen GI for this and has had pill cam and other tests completed but still without definitive diagnosis. Last night started with another episode . Historical: - Allergies: 06:19 Aspirin; jb4 06:19 Advil; jb4 - Home Meds: 06:19 Advair Diskus Inhl [Active]; Protonix Oral [Active]; jb4 - PMHx: 06:19 Asthma; jb4 - PSHx: 06:19 Cholecystectomy; sinus; right hand; jb4 - Immunization history:: Adult Immunizations up to date. - Coronavirus screen:: The patient has NOT traveled to [place], [place], or [place] in the past 14 days. Proceed with normal triage process as indicated. The patient has NOT had contact with known/suspected case of Coronavirus? Proceed with normal triage procedures. - Social history:: Smoking status: Patient denies any tobacco usage or history of. Patient uses alcohol, but reports only rare drinking. Patient/guardian denies using street drugs. - Ebola Screening: : No symptoms or risks identified at this time. ROS: 06:32 Eyes: Negative for injury, pain, redness, and discharge, ENT: Negative for injury, jr8 pain, and discharge, Neck: Negative for injury, pain, and swelling, Cardiovascular: Negative for chest pain, palpitations, and edema, Respiratory: Negative for shortness of breath, cough, wheezing, and pleuritic chest pain, Back: Negative for injury and pain, MS/Extremity: Negative for injury and deformity, Skin: Negative for injury, rash, and discoloration, Neuro: Negative for headache, weakness, numbness, tingling, and seizure. 06:32 Abdomen/GI: Positive for abdominal pain, nausea and vomiting, Negative for diarrhea, constipation, abdominal cramps, abdominal distension. Exam: 06:32 Eyes: Pupils equal round and reactive to light, extra-ocular motions intact. Lids and jr8 lashes normal. Conjunctiva and sclera are non-icteric and not injected. Cornea within normal limits. Periorbital areas with no swelling, redness, or edema. ENT: Nares patent. No nasal discharge, no septal abnormalities noted. Tympanic membranes are normal and external auditory canals are clear. Oropharynx with no redness, swelling, or masses, exudates, or evidence of obstruction, uvula midline. Mucous membranes moist. Neck: Trachea midline, no thyromegaly or masses palpated, and no cervical lymphadenopathy. Supple, full range of motion without nuchal rigidity, or vertebral point tenderness. No Meningismus. Cardiovascular: Regular rate and rhythm with a normal S1 and S2. No gallops, murmurs, or rubs. Normal PMI, no JVD. No pulse deficits. Respiratory: Lungs have equal breath sounds bilaterally, clear to auscultation and percussion. No rales, rhonchi or wheezes noted. No increased work of breathing, no retractions or nasal flaring. Back: No spinal tenderness. No costovertebral tenderness. Full range of motion. Skin: Warm, dry with normal turgor. Normal color with no rashes, no lesions, and no evidence of cellulitis. MS/ Extremity: Pulses equal, no cyanosis. Neurovascular intact. Full, normal range of motion. Neuro: Awake and alert, GCS 15, oriented to person, place, time, and situation. Cranial nerves II-XII grossly intact. Motor strength 5/5 in all extremities. Sensory grossly intact. Cerebellar exam normal. Normal gait. 06:32 Abdomen/GI: Inspection: abdomen appears normal, Bowel sounds: active, all quadrants, Palpation: soft, in all quadrants, mild abdominal tenderness, in the epigastric area, mass, is not appreciated, rebound tenderness, is not appreciated, voluntary guarding, is not appreciated, involuntary guarding, is not appreciated, no appreciated organomegaly, Indicators: McBurney's point is not tender, Mason's sign is negative, Rovsing's sign is negative, Liver: tenderness, is not appreciated. Vital Signs: 06:19 BP 134 / 91; Pulse 80; Resp 16; Temp 98.0(O); Pulse Ox 99% on R/A; Weight 86.18 kg (R); jb4 Height 5 ft. 8 in. (172.72 cm) (R); Pain 7/10; 07:15 BP 136 / 96; Pulse 71; Resp 19 S; Pulse Ox 98% on R/A; Pain 7/10; jl7 08:00 BP 130 / 95; Pulse 64; Resp 16 S; Pulse Ox 98% on R/A; Pain 5/10; jl7 06:19 Body Mass Index 28.89 (86.18 kg, 172.72 cm) jb4 MDM: 06:25 Patient medically screened. 8 08:02 Differential diagnosis: bowel obstruction, diverticulitis, gastritis, gastroesophageal jr8 reflux disease, Hepatitis, Irritable bowel syndrome, non-specific abd pain, pancreatitis, Peptic Ulcer Disease, Perf. Duodenal Ulcer, Perf. Gastric Ulcer, biliary stricture or stone. Data reviewed: vital signs, nurses notes, lab test result(s). Data interpreted: Pulse oximetry: on room air is 99 %. Interpretation: normal. Counseling: I had a detailed discussion with the patient and/or guardian regarding: the historical points, exam findings, and any diagnostic results supporting the discharge/admit diagnosis, lab results, the need for outpatient follow up, a family practitioner, a spot welder line, to return to the emergency department if symptoms worsen or persist or if there are any questions or concerns that arise at home. Response to treatment: the patient's symptoms have markedly improved after treatment, patient is well hydrated. Special discussion: Based on the patient's Hx, exam, and Dx evaluation, there is no indication for emergent surgery or inpatient Tx. It is understood by the patient/guardian that if the Sx's persist or worsen they need to return immediately for re-evaluation. 07/15 06:25 Order name: Basic Metabolic Panel 07/15 06:25 Order name: CBC with Diff 07/15 06:25 Order name: Creatinine for Radiology 07/15 06:25 Order name: Hepatic Function 07/15 06:25 Order name: Lipase 07/15 07:14 Order name: CBC with Automated Diff; Complete Time: 07:43 EDMS 07/15 06:25 Order name: IV Saline Lock; Complete Time: 07:06 07/15 07:23 Order name: Creatinine (Radiology Only); Complete Time: 07:43 EDMS 07/15 07:25 Order name: Basic Metabolic Panel; Complete Time: 07:43 EDMS 07/15 07:25 Order name: Liver (Hepatic) Function; Complete Time: 07:43 EDMS 07/15 07:25 Order name: Lipase; Complete Time: 07:43 EDMS 07/15 06:25 Order name: Labs collected and sent; Complete Time: 07:06 Administered Medications: 07:30 Drug: Zofran 4 mg Route: IVP; Site: right antecubital; [facility] 07:45 Follow up: Response: No adverse reaction; Nausea is decreased [facility] 07:30 Drug: NS 0.9% 1000 ml Route: IV; Rate: 1000 ml; Site: right antecubital; jl7 08:30 Follow up: Response: No adverse reaction; IV Status: Completed infusion; IV Intake: jl7 1000ml 07:35 Drug: morphine 4 mg Route: IVP; Site: right antecubital; jl7 08:00 Follow up: Response: No adverse reaction; Pain is decreased jl7 Disposition: 10:19 Co-signature as Attending Physician, Federico Schwartz MD I agree with the assessment and 4 plan of care. Disposition: 07/15/19 08:04 Discharged to Home. Impression: Epigastric pain, Nausea and vomiting. - Condition is Stable. - Discharge Instructions: Abdominal Pain, Adult, Nausea and Vomiting, Adult. - Prescriptions for Zofran ODT 4 mg Oral tablet,disintegrating - place 1 tablet by TRANSLINGUAL route every 8 hours As needed; 12 tablet. - Medication Reconciliation Form, Thank You Letter, Antibiotic Education, Prescription Opioid Use form. - Follow up: Dbebie Colvin MD; When: 1 - 2 days; Reason: Recheck today's complaints, Continuance of care, Re-evaluation by your physician. - Problem is new. - Symptoms have improved. Signatures: Dispatcher [employer] EDMS William West PA PA jr8 Jerod Miller, RN RN jb4 Chico Lee RN RN jl7 Federico Schwartz MD MD tw4 Corrections: (The following items were deleted from the chart) 08:45 08:04 07/15/2019 08:04 Discharged to Home. Impression: Epigastric pain; Nausea and jl7 vomiting. Condition is Stable. Forms are Medication Reconciliation Form, Thank You Letter, Antibiotic Education, Prescription Opioid Use. Follow up: Debbie Colvin; When: 1 - 2 days; Reason: Recheck today's complaints, Continuance of care, Re-evaluation by your physician. Problem is new. Symptoms have improved. jr8
--- NOTE | 2019-07-15 08:04 | ER ---
Nurse's Notes [facility] Name: Christian Holder Jr Age: 38 yrs Sex: Male : 1980 Arrival Date: 07/15/2019 Time: 06:03 Bed 14 Private MD: Diagnosis: Epigastric pain;Nausea and vomiting Presentation: 07/15 06:16 Presenting complaint: Patient states: I have been vomiting all night. Every six months jb4 it seems like this happens and it feels like my gallbladder is going out. Transition of care: patient was not received from another setting of care. Onset of symptoms was July 15, 2019. Risk Assessment: Do you want to hurt yourself or someone else? Patient reports no desire to harm self or others. Initial Sepsis Screen: Does the patient meet any 2 criteria? No. Patient's initial sepsis screen is negative. Does the patient have a suspected source of infection? No. Patient's initial sepsis screen is negative. Care prior to arrival: None. 06:16 Method Of Arrival: Ambulatory jb4 06:16 Acuity: HENRY 3 jb4 Historical: - Allergies: 06:19 Aspirin; jb4 06:19 Advil; jb4 - Home Meds: 06:19 Advair Diskus Inhl [Active]; Protonix Oral [Active]; jb4 - PMHx: 06:19 Asthma; jb4 - PSHx: 06:19 Cholecystectomy; sinus; right hand; jb4 - Immunization history:: Adult Immunizations up to date. - Coronavirus screen:: The patient has NOT traveled to [place], [place], or [place] in the past 14 days. Proceed with normal triage process as indicated. The patient has NOT had contact with known/suspected case of Coronavirus? Proceed with normal triage procedures. - Social history:: Smoking status: Patient denies any tobacco usage or history of. Patient uses alcohol, but reports only rare drinking. Patient/guardian denies using street drugs. - Ebola Screening: : No symptoms or risks identified at this time. Screenin:21 Abuse screen: Denies threats or abuse. Nutritional screening: No deficits noted. jb4 Tuberculosis screening: No symptoms or risk factors identified. Fall Risk None identified. Assessment: 06:21 General: Appears in no apparent distress. uncomfortable, Behavior is calm, cooperative, jb4 appropriate for age. Pain: Complains of pain in abdomen Pain does not radiate. Pain currently is 8 out of 10 on a pain scale. Quality of pain is described as stabbing, Pain began 1 day ago. Is intermittent. Neuro: Level of Consciousness is awake, alert, obeys commands, Oriented to person, place, time, situation. Cardiovascular: Patient's skin is warm and dry. Respiratory: Airway is patent Respiratory effort is even, unlabored, Respiratory pattern is regular, symmetrical. GI: Abdomen is round non-distended. : No signs and/or symptoms were reported regarding the genitourinary system. EENT: No signs and/or symptoms were reported regarding the EENT system. Derm: Skin is intact, Skin is pink, warm \T\ dry. Musculoskeletal: Circulation, motion, and sensation intact. Range of motion: intact in all extremities. 07:25 Reassessment: Left AC IV infiltrated, IV dc'd at this time. jl7 08:00 Reassessment: Patient appears in no apparent distress at this time. Patient and/or jl7 family updated on plan of care and expected duration. Pain level reassessed. Patient is alert, oriented x 3, equal unlabored respirations, skin warm/dry/pink. reports decreased pain at this time. Vital Signs: 06:19 BP 134 / 91; Pulse 80; Resp 16; Temp 98.0(O); Pulse Ox 99% on R/A; Weight 86.18 kg (R); jb4 Height 5 ft. 8 in. (172.72 cm) (R); Pain 7/10; 07:15 BP 136 / 96; Pulse 71; Resp 19 S; Pulse Ox 98% on R/A; Pain 7/10; jl7 08:00 BP 130 / 95; Pulse 64; Resp 16 S; Pulse Ox 98% on R/A; Pain 5/10; jl7 06:19 Body Mass Index 28.89 (86.18 kg, 172.72 cm) jb4 ED Course: 06:03 Patient arrived in ED. cl3 06:07 Jerod Miller, RN is Primary Nurse. jb4 06:17 Triage completed. jb4 06:19 Arm band placed on right wrist. jb4 06:21 Patient has correct armband on for positive identification. Placed in gown. Bed in low jb4 position. Call light in reach. Side rails up X 1. Pulse ox on. NIBP on. 06:24 William West PA is PHCP. jr8 06:24 Federico Schwartz MD is Attending Physician. jr8 06:55 Inserted saline lock: 20 gauge in left antecubital area, using aseptic technique. jl7 ,using aseptic technique. Inserted by Ben lamination technician Blood collected. 07:06 Basic Metabolic Panel Sent. ds4 07:06 CBC with Diff Sent. ds4 07:06 Creatinine for Radiology Sent. ds4 07:06 Hepatic Function Sent. ds4 07:06 Lipase Sent. ds4 07:41 Inserted saline lock: 20 gauge in right antecubital area, using aseptic technique. jl7 08:03 Debbie Colvin MD is Referral Physician. jr8 08:45 No provider procedures requiring assistance completed. IV discontinued, intact, jl7 bleeding controlled, No redness/swelling at site. Pressure dressing applied. Administered Medications: 07:30 Drug: Zofran 4 mg Route: IVP; Site: right antecubital; jl7 07:45 Follow up: Response: No adverse reaction; Nausea is decreased jl7 07:30 Drug: NS 0.9% 1000 ml Route: IV; Rate: 1000 ml; Site: right antecubital; jl7 08:30 Follow up: Response: No adverse reaction; IV Status: Completed infusion; IV Intake: jl7 1000ml 07:35 Drug: morphine 4 mg Route: IVP; Site: right antecubital; jl7 08:00 Follow up: Response: No adverse reaction; Pain is decreased jl7 Intake: 08:30 IV: 1000ml; Total: 1000ml. jl7 Outcome: 08:04 Discharge ordered by . jr8 08:45 Discharged to home ambulatory. jl7 08:45 Condition: stable 08:45 Discharge instructions given to patient, Instructed on discharge instructions, follow up and referral plans. medication usage, Demonstrated understanding of instructions, follow-up care, medications, Prescriptions given X 1. 08:45 Patient left the ED. jl7 Signatures: William West PA PA jr8 Ben Alexandre ds4 Jerod Miller, RN RN jb4 Chico Lee RN RN jl7 Calista Andre cl3 Corrections: (The following items were deleted from the chart) 07:42 06:55 Inserted saline lock: 20 gauge in right antecubital area, using aseptic jl7 technique. Blood collected. ds4
[2019-07-17 03:44] VITALS: TEMP 98
[2019-07-17 04:23] VITALS: BP 136/96; O2SAT 98
== END 2019-07-15 08:45 | disposition home or self-care (01) ==
LOC: ER 06:01
DX: R11.2 Nausea with vomiting, unspecified (principal); Z88.6 Allergy status to analgesic agent; J45.909 Unspecified asthma, uncomplicated
CPT/HCPCS: 96361; 85025; 80048; 36415; 80076; 83690; 96375; 96374; 99284; J7030; J2405